=== PATIENT | male | born 1965 | race Caucasian/White ===

== ENCOUNTER → 2018-04-23 | Outpatient (CLI) | payer OTHER ==
--- NOTE | 2018-04-23 10:24 | XR ---
EXAMINATION TYPE: XR chest 2V DATE OF EXAM: 04/23/2018 COMPARISON: NONE HISTORY: Chest pain for 2 years. TECHNIQUE: Frontal and lateral views of the chest are obtained. FINDINGS: There is no focal air space opacity, pleural effusion, or pneumothorax seen. The cardiac silhouette size is within normal limits. The osseous structures are intact. IMPRESSION: No acute process.
== END | disposition home or self-care (01) ==
LOC: RADXRMAIN 10:04
PROVIDERS: ATTEND Internal Medicine Cardiovascular Disease
DX: R07.9 Chest pain, unspecified (principal); F17.200 Nicotine dependence, unspecified, uncomplicated
CPT/HCPCS: 71046

== ENCOUNTER 2022-10-23 06:12 | Observation (INO) | payer OTHER ==
--- NOTE | 2022-10-23 06:19 | ED ---
General Adult HPI - General Stated complaint: Chest Pain, Shortness of breath, Pain in neck Time Seen by Provider: 10/23/22 06:17 Source: RN notes reviewed - History of Present Illness Initial comments: 57-year-old male with past medical history significant for COPD presents to the emergency department the chief complaint of sided chest pain as sharp. He started approximately 7 PM. It is worse with movement. It does not radiate. He has experienced pneumonia at rest it will be intermittent and very between a sharp pain in a dull ache. Reports he takes a daily aspirin daily. Denies dizziness, lightheadedness, nausea, vomiting. Patient reports that he does smoke daily. - Related Data Home Medications Medication Instructions Recorded Confirmed Albuterol Sulfate [Ventolin HFA] 2 puff INHALATION RT-QID PRN 10/23/22 10/23/22 Aspirin EC [Ecotrin Low Dose] 81 mg PO DAILY 10/23/22 10/23/22 Budesonide/Formoterol Fumarate 1 puff INHALATION RT-BID 10/23/22 10/23/22 [Symbicort 160-4.5 Mcg Inhaler] Ergocalciferol [Vitamin D2 (1250 1,250 mcg PO SA 10/23/22 10/23/22 Mcg = [id number] Iu)] Allergies Allergy/AdvReac Type Severity Reaction Status Date / Time No Known Allergies Allergy Verified 10/23/22 13:10 Review of Systems ROS Statement: Those systems with pertinent positive or pertinent negative responses have been documented in the HPI. ROS Other: All systems not noted in ROS Statement are negative. General Exam - General Exam Comments Initial Comments: General: Alert, in no acute distress Head: atraumatic normocephalic. Eyes PERRL, EOMI intact, mucous membranes moist Respiratory: Lungs clear to auscultation bilaterally Cardiovascular: Bradycardiac Abdominal: Soft without guarding or rebound Extremities: Normal inspection with full range of motion and normal capillary refill Neuroogic: alert and oriented 3, CN II-XII intact, able to ambulate with steady gait Skin: warm dry and intact with normal color General appearance: alert, in no apparent distress Head exam: Present: atraumatic, normocephalic, normal inspection Eye exam: Present: normal appearance, PERRL, EOMI. Absent: scleral icterus, conjunctival injection, periorbital swelling ENT exam: Present: normal exam, mucous membranes moist Neck exam: Present: normal inspection. Absent: tenderness, meningismus, lymphadenopathy Respiratory exam: Present: normal lung sounds bilaterally. Absent: respiratory distress, wheezes, rales, rhonchi, stridor Cardiovascular Exam: Present: regular rate, normal rhythm, normal heart sounds. Absent: systolic murmur, diastolic murmur, rubs, gallop, clicks GI/Abdominal exam: Present: soft, normal bowel sounds. Absent: distended, tenderness, guarding, rebound, rigid Extremities exam: Present: normal inspection, full ROM, normal capillary refill. Absent: tenderness, pedal edema, joint swelling, calf tenderness Back exam: Present: normal inspection Neurological exam: Present: alert, oriented X3, CN II-XII intact Psychiatric exam: Present: normal affect, normal mood Skin exam: Present: warm, dry, intact, normal color. Absent: rash Course Vital Signs 10/23/22 06:14 Temperature 98.6 F Pulse Rate 58 L Respiratory 18 Rate Blood Pressure 164/91 O2 Sat by Pulse 98 Oximetry - Reevaluation(s) Reevaluation #1: 10/23/22 10:56 reevaluated. Patient describes this chest pain as a dull ache. It is agreeable with the plan for admission. Case discussed with Dr. Dao who agrees and accepts the patient for admission for continued observation and consult cardiology. EKG Findings - EKG Comments: EKG Findings:: I interpreted the following: EKG performed at 06:26 rate 55 and sinus bradycardia. IA interval 131, QRS duration 88, QT/QTc 387/375 Medical Decision Making - Medical Decision Making Was pt. sent in by a medical professional or institution (, PA, DESILVERIZER, urgent care, hospital, or snf...) When possible be specific @ -[No] Did you speak to anyone other than the patient for history (EMS, parent, family, police, friend...)? What history was obtained from this source @ - Did you review nursing and triage notes (agree or disagree)? Why? @ -[I reviewed and agree with nursing and triage notes] Were old charts reviewed (outside hosp., previous admission, EMS record, old EKG, old radiological studies, urgent care reports/EKG's, snf records)? Report findings @ -[No old charts were reviewed] Differential Diagnosis (chest pain, altered mental status, abdominal pain women, abdominal pain men, vaginal bleeding, weakness, fever, dyspnea, syncope, headache, dizziness, GI bleed, back pain, seizure, CVA, palpatations, mental health, musculoskeletal)? @ -[not applicable] EKG interpreted by me (3pts min.). @ -[As above] X-rays interpreted by me (1pt min.). @ -X-ray does not reveal any intrapleural process or evidence of consolidation or cardiomegaly CT interpreted by me (1pt min.). @ -[None done] U/S interpreted by me (1pt. min.). @ -[None done] What testing was considered but not performed or refused? (CT, X-rays, U/S, labs)? Why? @ -[None] What meds were considered but not given or refused? Why? @ -[None] Did you discuss the management of the patient with other professionals (professionals i.e. , PA, DESILVERIZER, lab, RT, psych nurse, psychotherapist social worker, front desk worker, teacher, unclaimed property officer, nurse outreach case manager)? Give summary @ -[No] Was smoking cessation discussed for >3mins.? @ -Yes Was critical care preformed (if so, how long)? @ -[No] Were there social determinants of health that impacted care today? How? (Homelessness, low income, unemployed, alcoholism, drug addiction, transportation, low edu. Level, literacy, decrease access to med. care, senior living, rehab)? @ -[No] Was there de-escalation of care discussed even if they declined (Discuss DNR or withdrawal of care, Hospice)? DNR status @ -[No] What co-morbidities impacted this encounter? (DM, HTN, Smoking, COPD, CAD, Cancer, CVA, ARF, Chemo, Hep., AIDS, mental health diagnosis, sleep apnea, morbid obesity)? @ -[None] Was patient admitted / discharged? Hospital course, mention meds given and route, prescriptions, significant lab abnormalities, going to OR and other pertinent info. @ Admission. This is a pleasant 57-year-old male with a past medical history significant for COPD who presents the emergency department with chest pain. Patient reports a history and physical performed while in the ED. Patient remains to be sinus bradycardia. Lungs clear to auscultation bilaterally abdomen soft and nontender. Patient had lab work and imaging studies performed which revealed WBC 5.1, hemoglobin 16.0 sodium 138, potassium 4.8 BUN 16, creatinine 1.34, initial troponin negative EKG shows nonspecific ST changes. Case discussed with Dr. Sylwia thomson who agrees and accepts the patient for further observation with recommend consult to cardiology. Patient was offered aspirin and nitroglycerin for his symptoms however he declined. Case discussed with AMPARO Talamantes who agrees with plan of care Undiagnosed new problem with uncertain prognosis? @ -[No] Drug Therapy requiring intensive monitoring for toxicity (Heparin, Nitro, Insulin, Cardizem)? @ -[No] Were any procedures done? @ -[No] Diagnosis/symptom? @ -Chest Pain - Unstable Angina Acute, or Chronic, or Acute on Chronic? @ -Acute Uncomplicated (without systemic symptoms) or Complicated (systemic symptoms)? @ -Uncomplicated Side effects of treatment? @ -[No] Exacerbation, Progression, or Severe Exacerbation? @ -[No] Poses a threat to life or bodily function? How? (Chest pain, [place], OR, pneumonia, PE, COPD, DKA, ARF, appy, cholecystitis, CVA, Diverticulitis, Homicidal, Suicidal, threat to staff... and all critical care pts) @ -Low likelihood - Lab Data Result diagrams: 10/23/22 06:40 10/23/22 06:40 Lab Results 10/23/22 10/23/22 10/23/22 Range/Units 06:40 06:40 06:40 WBC 5.1 (3.8-10.6) k/uL RBC 5.05 (4.30-5.90) m/uL Hgb 16.0 (13.0-17.5) gm/dL Hct 48.2 (39.0-53.0) % MCV 95.3 (80.0-100.0) fL MCH 31.7 (25.0-35.0) pg MCHC 33.3 (31.0-37.0) g/dL RDW 13.0 (11.5-15.5) % Plt Count 220 (150-450) k/uL MPV 7.2 Neutrophils % (Manual) 50 % Band Neuts % (Manual) 1 % Lymphocytes % (Manual) 30 % Monocytes % (Manual) 16 % Eosinophils % (Manual) 3 % Neutrophils # (Manual) 2.60 (1.3-7.7) k/uL Lymphocytes # (Manual) 1.53 (1.0-4.8) k/uL Monocytes # (Manual) 0.82 (0-1.0) k/uL Eosinophils # (Manual) 0.15 (0-0.7) k/uL Nucleated RBCs 0 (0-0) /100 WBC Manual Slide Review Performed RBC Morphology Normal Sodium 138 (137-145) mmol/L Potassium 4.8 (3.5-5.1) mmol/L Chloride 105 (98-107) mmol/L Carbon Dioxide 23 (22-30) mmol/L Anion Gap 10 mmol/L BUN 16 (9-20) mg/dL Creatinine 1.34 H (0.66-1.25) mg/dL Est GFR (CKD-EPI)AfAm 68 (>60 ml/min/1.73 sqM) Est GFR (CKD-EPI)NonAf 58 (>60 ml/min/1.73 sqM) Glucose 96 (74-99) mg/dL Calcium 9.3 (8.4-10.2) mg/dL Magnesium 2.0 (1.6-2.3) mg/dL Total Bilirubin 1.1 (0.2-1.3) mg/dL AST 38 (17-59) U/L ALT 22 (4-49) U/L Alkaline Phosphatase 98 (38-126) U/L Troponin I <0.012 (0.000-0.034) ng/mL Total Protein 7.7 (6.3-8.2) g/dL Albumin 4.4 (3.5-5.0) g/dL 10/23/22 Range/Units 09:24 WBC (3.8-10.6) k/uL RBC (4.30-5.90) m/uL Hgb (13.0-17.5) gm/dL Hct (39.0-53.0) % MCV (80.0-100.0) fL MCH (25.0-35.0) pg MCHC (31.0-37.0) g/dL RDW (11.5-15.5) % Plt Count (150-450) k/uL MPV Neutrophils % (Manual) % Band Neuts % (Manual) % Lymphocytes % (Manual) % Monocytes % (Manual) % Eosinophils % (Manual) % Neutrophils # (Manual) (1.3-7.7) k/uL Lymphocytes # (Manual) (1.0-4.8) k/uL Monocytes # (Manual) (0-1.0) k/uL Eosinophils # (Manual) (0-0.7) k/uL Nucleated RBCs (0-0) /100 WBC Manual Slide Review RBC Morphology Sodium (137-145) mmol/L Potassium (3.5-5.1) mmol/L Chloride (98-107) mmol/L Carbon Dioxide (22-30) mmol/L Anion Gap mmol/L BUN (9-20) mg/dL Creatinine (0.66-1.25) mg/dL Est GFR (CKD-EPI)AfAm (>60 ml/min/1.73 sqM) Est GFR (CKD-EPI)NonAf (>60 ml/min/1.73 sqM) Glucose (74-99) mg/dL Calcium (8.4-10.2) mg/dL Magnesium (1.6-2.3) mg/dL Total Bilirubin (0.2-1.3) mg/dL AST (17-59) U/L ALT (4-49) U/L Alkaline Phosphatase (38-126) U/L Troponin I <0.012 (0.000-0.034) ng/mL Total Protein (6.3-8.2) g/dL Albumin (3.5-5.0) g/dL Disposition Clinical Impression: Chest pain, Unstable angina Disposition: ADMITTED IP TO THIS [facility] Condition: Stable Is patient prescribed a controlled substance at d/c from ED?: No Time of Disposition: 10:28
--- NOTE | 2022-10-23 07:34 | XR ---
EXAMINATION TYPE: XR chest 2V DATE OF EXAM: 10/23/2022 COMPARISON: 04/23/2018 INDICATION: Chest pain TECHNIQUE: Frontal and lateral views of the chest are obtained. FINDINGS: The heart size is normal. The pulmonary vasculature is normal. The lungs are clear. IMPRESSION: 1. No acute pulmonary process.
[2022-10-23 07:58] LABS: ALT 22 U/L (4-49); AST 38 U/L (17-59); African American GFR (CKD) 68 (>60 ml/min/1.73 sqM); Albumin 4.4 g/dL (3.5-5.0); Alkaline Phosphatase 98 U/L (38-126); Anion Gap 10 mmol/L; Blood Urea Nitrogen 16 mg/dL (9-20); Calcium 9.3 mg/dL (8.4-10.2); Carbon Dioxide 23 mmol/L (22-30); Chloride 105 mmol/L (98-107); Glucose 96 mg/dL (74-99); Non-African American GFR(CKD) 58 (>60 ml/min/1.73 sqM); Potassium 4.8 mmol/L (3.5-5.1); Sodium 138 mmol/L (137-145); Total Bilirubin 1.1 mg/dL (0.2-1.3); Total Protein 7.7 g/dL (6.3-8.2)
[2022-10-23 08:14] LABS: HCT 48.2 % (39.0-53.0); MCH 31.7 pg (25.0-35.0); MCHC 33.3 g/dL (31.0-37.0); MCV 95.3 fL (80.0-100.0); Mean Platelet Volume 7.2; Platelet Count 220 k/uL (150-450); RBC 5.05 m/uL (4.30-5.90); WBC 5.1 k/uL (3.8-10.6)
[2022-10-23] MEDS ORDERED: NITROGLYCERIN SL TABS 0.4 MG TAB SUBLINGUAL PRN (09:23)
[2022-10-23] MEDS ORDERED: SODIUM CHLORIDE 0.9% 1,000 ML IV ONE (09:23)
[2022-10-23] MEDS ORDERED: ASPIRIN 325 MG TAB PO STA (09:23)
[2022-10-23 09:31] LABS: Band Neutrophils % 1 %; Eosinophils # (M) 0.15 k/uL (0-0.7); Lymphocytes # (M) 1.53 k/uL (1.0-4.8); Monocytes # (M) 0.82 k/uL (0-1.0); Neutrophils % (M) 50 %; Nucleated Red Blood Cells 0 /100 WBC (0-0); Total Cells Counted 100
[2022-10-23 09:33] LABS: RBC Morphology Normal
[2022-10-23] MEDS ORDERED: NALOXONE 0.4 MG/ML 1 ML VIAL IV PRN (10:54)
[2022-10-23] MEDS ORDERED: SODIUM CHLORIDE 0.9% 1,000 ML IV SCH (11:00)
--- NOTE | 2022-10-23 12:43 | P.HPIM ---
History of Present Illness H&P Date: 10/23/22 History of Presenting Illness: Patient is a very pleasant 57-year-old male with a past medical history of COPD and nicotine dependence. Patient reports he recently quit smoking a few days ago. He presented to the emergency department today secondary to complaints of chest pain. Patient reports he's had intermittent chest pain on and off for months and that intermittently comes and goes with no rhyme or reason. Patient states it can come on at rest or with activity, but states this time it was different. Patient reports around 7 PM last night feeling a sharp pain to left anterior chest accompanied by shortness of breath and pain in the back of his neck. He describes this pain as a sharp feeling and again states it waxes and wanes, he reports this time pain was different because again it was accompanied by shortness of breath and pain in the back of his neck but also after starting at 7 PM he went to bed and upon awakening this morning the pain was still there which never happens so he figured he better get it checked out. He denies having any dizziness, lightheadedness, headache, diaphoresis, chills, fevers, palpitations, postnasal drainage/cough/congestion, nausea/vomiting, or experiencing any numbness/tingling/weakness/swelling in his extremities. He underwent full evaluation in the emergency department. Vital signs completed with blood pressure 164/91, heart rate 58, respiratory rate 18, temp 98.6F, SpO2 of 98% on room air. EKG showing sinus bradycardia at 55 bpm with no significant T-wave or ST abnormalities upon personal review and interpretation. X-ray completed negative for acute cardiopulmonary process. Labs completed and reviewed. CBC unremarkable. BMP revealing mild elevation of creatinine at 1.34, unknown baseline as no previous labs available for comparison. Troponins negative at less than 0.012 with repeat troponin of less than 0.012. Discussed patient history, current complaints, laboratory analysis and imaging results with ED provider. Patient to be admitted under our services to cardiac observation unit with telemetry. Consult placed to cardiology. Review of systems: Pertinent positives and negatives as discussed in HPI, a complete review of systems was performed and all other systems are negative. Physical exam: Vital signs reviewed and stable. General: Nontoxic, no distress and appears stated age. Derm: Skin warm and dry, normal coloration for ethnicity. Head: Atraumatic, normocephalic and symmetric. Eyes: EOMs intact, no lid lag, and anicteric sclera Mouth: no lip lesions, mucus membranes moist Cardiovascular: regular rate and rhythm with normal S1S2, no murmur, positive posterior tibial pulses bilaterally, and cap refill < 2 seconds. Lungs: Respirations even, regular, and unlabored on room air. Lungs CTA bilaterally, no rhonchi, no rales, no wheezing, and no accessory muscle usage. Abdominal: soft, nontender to palpation, no guarding, no appreciable organomegaly Ext: ROM intact. No gross muscle atrophy, no edema, no contractures Neuro: Speech clear, face symmetrical and CN II-XII grossly intact with no noted focal neuro deficits Psych: Alert and oriented to person, place, time, and situation. Appropriate and pleasant affect. Assessment and Plan of Care: Patient is a very pleasant 57-year-old male with a past medical history of COPD and long-standing history of nicotine dependence reports recently quit smoking 3 days ago. He presented to the emergency department with a chief complaint of chest pain accompanied by shortness of breath and pain to the back of his neck. Imaging reviewed: -EKG showing sinus bradycardia at 55 bpm with no significant T-wave or ST abn ormalities upon personal review and interpretation. -X-ray completed negative for acute cardiopulmonary process. Data reviewed: -Vital signs completed with blood pressure 164/91, heart rate 58, respiratory rate 18, temp 98.6F, SpO2 of 98% on room air. -Labs completed and reviewed. CBC unremarkable. BMP revealing mild elevation of creatinine at 1.34, unknown baseline as no previous labs available for comparison. Troponins negative at less than 0.012 with repeat troponin of less than 0.012. Chest pain, rule out acute coronary event COPD Nicotine dependence, recommend continued cessation -Cardiology consult, appreciate further recommendations -Telemetry monitoring -Trend troponins -Cardiac diet, NPO at midnight -Aspirin, atorvastatin, and metoprolol -Lipid profile with a.m. labs. -Echocardiogram Discussed patient history, current complaints, laboratory analysis and imaging results with ED provider. Patient to be admitted under our services to cardiac observation unit with telemetry for an anticipated less than 2 midnight stay for evaluation of chest pain. CODE STATUS: Full code DVT prophylaxis: Lovenox Discussed with: Patient, patient's , RN and ED physician. Anticipated discharge date: 24-[address]: Home Patient was seen independently by Nurse Practitioner. This document was prepared using [employer] dictation software. Please allow for errors in gas meter repairer while rare they do occur. Tim Royal NP rendered care for this patient independently, reviewed the findings and plan as documented in the note above. I did not physically speak with or examine the patient on this date. Past Medical History Past Medical History: COPD History of Any Multi-Drug Resistant Organisms: None Reported Past Surgical History: No Surgical Hx Reported Past Psychological History: No Psychological Hx Reported Smoking Status: Current every day smoker Past Alcohol Use History: Occasional Past Drug Use History: None Reported Medications and Allergies Home Medications Medication Instructions Recorded Confirmed Type Albuterol Sulfate [Ventolin HFA] 2 puff INHALATION RT-QID PRN 10/23/22 10/23/22 History Aspirin EC [Ecotrin Low Dose] 81 mg PO DAILY 10/23/22 10/23/22 History Budesonide/Formoterol Fumarate 1 puff INHALATION RT-BID 10/23/22 10/23/22 History [Symbicort 160-4.5 Mcg Inhaler] Ergocalciferol [Vitamin D2 (1250 1,250 mcg PO SA 10/23/22 10/23/22 History Mcg = [id number] Iu)] Allergies Allergy/AdvReac Type Severity Reaction Status Date / Time No Known Allergies Allergy Verified 10/23/22 13:10 Physical Exam Vitals: Vital Signs Temp Pulse Resp BP Pulse Ox 10/23/22 06:14 98.6 F 58 L 18 164/91 98 Intake and Output 10/22/22 10/23/22 10/23/22 22:59 06:59 14:59 Other: Weight 85.729 kg Results CBC & Chem 7: 10/24/22 05:51 10/24/22 05:51 Labs: Abnormal Lab Results - Last 24 Hours (Table) 10/23/22 Range/Units 06:40 Creatinine 1.34 H (0.66-1.25) mg/dL
[2022-10-23 16:12] LABS: Partial Thromboplastin Time 26.2 sec (22.0-30.0); Prothrombin Time 10.3 sec (9.0-12.0)
[2022-10-23] MEDS ORDERED: ALBUTEROL NEBULIZED 2.5 MG/3 ML INHALATION PRN (16:29)
[2022-10-23] MEDS ORDERED: HYDROcodone/APAP 5-325MG 1 EACH TAB PO PRN (16:30)
[2022-10-23] MEDS: SYMBICORT 160-4.5 MCG INHALER INHALATION SCH (20:46)
[2022-10-23] MEDS ORDERED: METOPROLOL TARTRATE 25 MG TAB PO SCH (21:00)
[2022-10-23] MEDS ORDERED: ATORVASTATIN 40 MG TAB PO SCH (21:00)
[2022-10-23 22:45] VITALS: RESP 16
[2022-10-24] MEDS: SYMBICORT 160-4.5 MCG INHALER INHALATION SCH (08:36)
[2022-10-24 08:41] LABS: Basophils # (A) 0.06 X 10*3/uL (0.00-0.10); Basophils % (A) 1.3 %; Eosinophils # (A) 0.07 X 10*3/uL (0.04-0.35); Eosinophils % (A) 1.6 %; HCT 45.1 % (39.6-50.0); HGB 15.7 d/dL (13.0-17.0); Lymphocytes # (A) 1.38 X 10*3/uL (0.90-5.00); Lymphocytes % (A) 30.6 %; MCH 32.2 pg (27.0-32.0); MCHC 34.8 d/dL (32.0-37.0); MCV 92.4 FL (80.0-97.0); Mean Platelet Volume 9.2 FL (9.5-12.2); Monocytes # (A) 0.86 X 10*3/uL (0.20-1.00); Monocytes % (A) 19.1 %; NRBC Per 100 WBC 0 X 10*3/uL (0.00-0.01); Neutrophils # (A) 2.12 X 10*3/uL (1.80-7.70); Platelet Count 209 X 10*3/uL (140-440); RBC 4.88 X 10*6/uL (4.40-5.60); RDW 12.9 % (11.5-14.5); WBC 4.51 X 10*3/uL (4.50-10.00)
[2022-10-24 08:55] LABS: BUN/Creat Ratio 9.33 Ratio (12.00-20.00); Blood Urea Nitrogen 11.2 mg/dL (9.0-27.0); Calcium 8.8 mg/dL (8.7-10.3); Carbon Dioxide 24.5 mmol/L (21.6-31.8); Chloride 104 mmol/L (96-109); Chol/HDL Ratio 3.58 Ratio; Glucose 101 mg/dL (70-110); LDL Cholesterol,Calculated 79.6 mg/dL (0.0-131.0); Potassium 4.4 mmol/L (3.5-5.5); Sodium 138 mmol/L (135-145)
[2022-10-24] MEDS ORDERED: ASPIRIN 81 MG PO SCH (09:00)
[2022-10-24] MEDS ORDERED: ENOXAPARIN 40 MG/0.4 ML SYRINGE SQ SCH (09:00)
[2022-10-24 09:10] VITALS: BP 131/77; PULSE 67; TEMP 98.4
--- NOTE | 2022-10-24 10:14 | P.CRDCN ---
History of Present Illness History of present illness: HISTORY OF PRESENT ILLNESS: This is a 57-year-old male with a past medical history significant for nicotine dependence. Patient does not follow with a business systems developer. We have been asked to see the patient in consultation for chest pain. Patient examined at the bedside. Patient states he has been having chest pain on and off for multiple years. He states on Monday night going into Monday the pain was worse than it has been in a long time. He states that there is nothing specific that brought the pain on. He states the pain is not worse with exertion. He states the pain does not last very long when it happens but then it will come back. He reports shortness of breath which is chronic and at his baseline secondary to smoking. He denies a history of hypertension, hyperlipidemia, or diabetes. He denies a history of coronary artery disease. He is a current cigarette smoker and smokes 1 pack per day. However, he states that he quit smoking on Monday. At the time of examination he denies chest pain or pressure. * EKG reveals sinus mechanism with no signs of acute ischemia * Chest xray negative for acute process * Laboratory data: WBC 4.51. Hemoglobin 15.7. Platelet count 209. D-dimer 0.49. Sodium 138. Potassium 4.8. BUN 16. Creatinine 1.34. Troponin negative 4. * Current home cardiac medications include aspirin 81 mg daily REVIEW OF SYSTEMS: At the time of my exam: CONSTITUTIONAL: Denies fever or chills. HEENT: Denies blurred vision, vision changes, or eye pain. Denies hemoptysis CARDIOVASCULAR: Denies chest pain. Denies orthopnea. Denies PND. Denies palpitations RESPIRATORY: Denies shortness of breath. GASTROINTESTINAL: Denies abdominal pain. Denies nausea or vomiting. HEMATOLOGIC: Denies bleeding disorders. GENITOURINARY: Denies any blood in urine. SKIN: Denies pruitis. Denies rash. PHYSICAL EXAM: VITAL SIGNS: Reviewed. GENERAL: Well-developed in no acute distress. HEENT: Head is normocephalic. Pupils are equal, round. Sclerae anicteric. Mucous membranes of the mouth are moist. Neck supple. No JVD or thyromegaly LUNGS: Respirations even and unlabored. Lungs essentially clear to auscultation bilaterally. HEART: Regular rate and rhythm. S1 and S2 heard. Soft systolic murmur. ABDOMEN: Soft. Nondistended. Nontender. EXTREMITIES: Normal range of motion. No clubbing or cyanosis. Peripheral pulses intact. No lower extremity edema NEUROLOGIC: Awake and alert. Oriented x 3. ASSESSMENT: Chest pain, troponins negative 4 Nicotine dependence PLAN: An acute coronary event has been ruled out Obtain 2-D echo to assess cardiac structure and function Patient to undergo stress echocardiogram today to assess for ischemia Smoking cessation recommended If stress echo is negative, patient may be discharged home today from a cardiac standpoint Nurse practitioner note has been reviewed by physician. Signing provider agrees with the documented findings, assessment, and plan of care. Past Medical History Past Medical History: COPD History of Any Multi-Drug Resistant Organisms: None Reported Past Surgical History: No Surgical Hx Reported Past Psychological History: No Psychological Hx Reported Smoking Status: Current every day smoker Past Alcohol Use History: Occasional Past Drug Use History: None Reported Medications and Allergies Home Medications Medication Instructions Recorded Confirmed Type Albuterol Sulfate [Ventolin HFA] 2 puff INHALATION RT-QID PRN 10/23/22 10/23/22 History Aspirin EC [Ecotrin Low Dose] 81 mg PO DAILY 10/23/22 10/23/22 History Budesonide/Formoterol Fumarate 1 puff INHALATION RT-BID 10/23/22 10/23/22 Hist ory [Symbicort 160-4.5 Mcg Inhaler] Ergocalciferol [Vitamin D2 (1250 1,250 mcg PO SA 10/23/22 10/23/22 History Mcg = 00704 Iu)] Allergies Allergy/AdvReac Type Severity Reaction Status Date / Time No Known Allergies Allergy Verified 10/23/22 13:10 Physical Exam Vitals: Vital Signs Temp Pulse Pulse Resp BP BP Pulse Ox 10/24/22 03:43 98.3 F 60 16 154/78 95 10/23/22 20:05 98.7 F 59 L 16 171/85 97 10/23/22 16:51 64 18 98 10/23/22 15:00 54 L 16 173/87 95 10/23/22 14:18 56 L 18 143/78 95 Intake and Output 10/23/22 10/24/22 10/24/22 22:59 06:59 14:59 Other: # Voids 1 1 Results 10/24/22 05:51 10/24/22 05:51 Cardiac Enzymes 10/23/22 10/23/22 10/23/22 Range/Units 09:24 11:14 15:34 Troponin I <0.012 <0.012 <0.012 (0.000-0.034) ng/mL Coagulation 10/23/22 Range/Units 15:40 PT 10.3 (9.0-12.0) sec APTT 26.2 (22.0-30.0) sec CBC 10/23/22 Range/Units 06:40 WBC 5.1 (3.8-10.6) k/uL RBC 5.05 (4.30-5.90) m/uL Hgb 16.0 (13.0-17.5) gm/dL Hct 48.2 (39.0-53.0) % Plt Count 220 (150-450) k/uL Current Medications Generic Name Dose Route Start Last Admin Trade Name Freq PRN Reason Stop Dose Admin Hydrocodone Bitart/Acetaminophen 1 each 10/23/22 16:30 Hydrocodone/Apap 5-325mg 1 Each Tab PO Q4HR PRN Moderate Pain (Scale 4 to 6) Albuterol Sulfate 2.5 mg 10/23/22 16:29 Albuterol Nebulized 2.5 Mg/3 Ml INHALATION RT-QID PRN Shortness Of Breath Aspirin 81 mg 10/24/22 09:00 Aspirin 81 Mg PO DAILY [place] Atorvastatin Calcium 40 mg 10/23/22 21:00 10/23/22 19:45 Atorvastatin 40 Mg Tab PO 40 mg HS [place] Administration Budesonide/Formoterol Fumarate 1 puff 10/23/22 20:00 10/23/22 20:46 Symbicort 160-4.5 Mcg Inhaler INHALATION Not Given RT-BID [place] Enoxaparin Sodium 40 mg 10/24/22 09:00 Enoxaparin 40 Mg/0.4 Ml Syringe SQ DAILY [place] Ergocalciferol 1,250 mcg 10/29/22 09:00 Ergocalciferol 1,250 Mcg (50,000 Iu) Capsule PO SA [facility] Sodium Chloride 1,000 mls @ 20 mls/hr 10/23/22 11:00 10/23/22 14:34 Saline 0.9% IV Not Given .Q24H [facility] Metoprolol Tartrate 25 mg 10/23/22 21:00 10/23/22 19:44 Metoprolol Tartrate 25 Mg Tab PO Not Given BID [place] Naloxone HCl 0.2 mg 10/23/22 10:54 Naloxone 0.4 Mg/Ml 1 Ml Vial IV Q2M PRN Opioid Reversal Nitroglycerin 0.4 mg 10/23/22 09: Nitroglycerin Sl Tabs 0.4 Mg Tab SUBLINGUAL Q5M PRN Chest Pain Intake and Output 10/23/22 10/24/22 10/24/22 22:59 06:59 14:59 Other: # Voids 1 1 10/23/22 06:40 10/23/22 06:40
--- NOTE | 2022-10-24 10:35 | CA ---
Transthoracic Echo Report Name: Villa Jiang Age: 57 Gender: M : 1965 Exam Date: 10/24/2022 08:10 Exam Location: [place] [facility] Ht (in): 68 Wt (lb): 189 Ordering Physician: Tim Royal Attending/Referring Phys: Lending Manager Denise Rico RDCS Procedure CPT: Indications: Evaluate structure and function of heart Cardiac Hx: Technical Quality: Good Contrast 1: Total Dose (mL): Contrast 2: Total Dose (mL): MEASUREMENTS (Male / Female) Normal Values 2D ECHO LV Diastolic Diameter PLAX 3.9 cm 4.2 - 5.9 / 3.9 - 5.3 cm LV Systolic Diameter PLAX 2.9 cm IVS Diastolic Thickness 1.3 cm 0.6 - 1.0 / 0.6 - 0.9 cm LVPW Diastolic Thickness 1.3 cm 0.6 - 1.0 / 0.6 - 0.9 cm LV Relative Wall Thickness 0.6 RV Internal Dim ED PLAX 3.3 cm LA Systolic Diameter LX 3.5 cm 3.0 - 4.0 / 2.7 - 3.8 cm LV Diastolic Volume MOD 4C 103.4 cm??? LV Systolic Volume MOD 4C 42.8 cm??? LV Ejection Fraction MOD 4C 58.6 % LV Cardiac Index MOD 4C 1597.4 cm???/min???m??? LV Diastolic Length 4C 8.0 cm LV Systolic Length 4C 6.4 cm LV Diastolic Volume MOD 2C 91.0 cm??? LV Systolic Volume MOD 2C 37.6 cm??? LV Ejection Fraction MOD 2C 58.7 % LV Cardiac Index MOD 2C 1407.7 cm???/min???m??? LV Diastolic Length 2C 8.4 cm LV Systolic Length 2C 6.8 cm LA Volume 58.4 cm??? 18 - 58 / 22 - 52 cm??? M-MODE Aortic Root Diameter MM 3.1 cm MV E Point Septal Separation 0.4 cm AV Cusp Separation MM 2.2 cm DOPPLER AV Peak Velocity 179.5 cm/s AV Peak Gradient 12.9 mmHg AV Mean Velocity 113.8 cm/s AV Mean Gradient 5.9 mmHg AV Velocity Time Integral 37.8 cm AI Peak Velocity 262.4 cm/s AI Peak Gradient 27.5 mmHg AI Pressure Half Time 1138.2 ms MV Area PHT 3.5 cm??? Mitral E Point Velocity 61.5 cm/s Mitral A Point Velocity 72.3 cm/s Mitral E to A Ratio 0.9 MV Deceleration Time 216.1 ms MV E' Velocity 5.3 cm/s Mitral E to MV E' Ratio 11.6 TR Peak Velocity 216.2 cm/s TR Peak Gradient 18.7 mmHg Right Ventricular Systolic Press 22.1 mmHg FINDINGS Left Ventricle Left ventricular ejection fraction is estimated at 55-60 %. Left ventricular cavity size normal. Mildly increased septal wall thickness. Right Ventricle Mild right ventricular dilatation. Right ventricular systolic pressure within normal limits. Right Atrium Normal right atrial size. Left Atrium Normal left atrial size. Mitral Valve Structurally normal mitral valve. Trace to mild mitral regurgitation. Aortic Valve Bicuspid aortic valve. Trace to mild aortic regurgitation. Tricuspid Valve Structurally normal tricuspid valve. Trace to mild tricuspid regurgitation. Pulmonic Valve Structurally normal pulmonic valve. Pericardium No pericardial effusion. Aorta Normal size aortic root and proximal ascending aorta. CONCLUSIONS 1. Normal left ventricle size and systolic function 2. Bicuspid aortic valve with preserved opening and trace to mild aortic regurgitation 3. Trace to mild mitral and tricuspid regurgitation. Previewed by: Dr. Rachel Chowdary MD (Electronically Signed) Final Date: 24 October 2022 10:34
--- NOTE | 2022-10-24 13:03 | CA ---
Stress Echo Report Villa Jiang Age: 57 Gender: M : 1965 Exam Date: 10/24/2022 11:18 Exam Location: [place] [facility] Ht (in): 68 Wt (lb): 189 Ordering Physician: Kassie Og Referring Physician: [id number] Pastoral Assistant: Ewa Woodruff RDCS Technologist Procedure CPT: Indication: CP ICD-9 Codes: Rhythm: Patient History: CHEST PAIN, DIFFICULTY IN BREATHING, CURRENT SMOKER, COPD Cardiac Medications: Medications in past 24 hours: Contrast: Stress Results Protocol: Vitaliy Total dose(mL): Exercise Duration (min:sec): 5:[address] Depression (mm): Angina Score: Larsen Score: METS: 6.6 Resting HR: 74 Resting BP: 143 / 76 Peak HR: 146 Peak BP: 206 / 56 Max Predicted HR: 162 90 % Max Predicted HR Target HR: 138 Double Product: [id number] Stress Summary: The patient's target heart rate was achieved BP Response: Normal Reason for Termination: TARGET HR/MAX EXERTION Cardiac Symptoms: ECG Analysis Resting ECG: Normal sinus rhythm, normal ECG Stress ECG: No abnormal ST/T wave changes with exercise Arrhythmia: Occasional APCs Echo Analysis Resting Echo: Normal resting echocardiogram. Peak Echo Analysis: Normal wall thickening and motion with no segmental wall motion amounting MEASUREMENTS (Male/Female) Normal Values CONCLUSIONS 1. Decreased exercise tolerance 2. Normal echocardiographic response to exercise 3. Normal stress echocardiogram with no evidence of stress- induced ischemia. Dr. Rachel Chowdary MD (Electronically Signed) Final Date: 24 October 2022 13:02
--- NOTE | 2022-10-24 14:27 | P.DS ---
Providers Date of admission: 10/23/22 10:13 Expected date of discharge: 10/24/22 Attending physician: Duy Dao MD Consults: 10/23/22 10:54 Consult Physician Routine Consulting Provider: Bridger Waters Consult Reason/Comments: Chest pain Do you want consulting provider notified?: Yes Primary care physician: Physician Nonstaff Hospital Course: Discharge Diagnosis: Chest pain, acute coronary event ruled out. COPD Nicotine dependence, recommend continued cessation Hospital Course: Patient is a very pleasant 57-year-old male with a past medical history of COPD and nicotine dependence. Patient reports he recently quit smoking a few days ago. He presented to the emergency department today secondary to complaints of chest pain. Patient reports he's had intermittent chest pain on and off for months and that intermittently comes and goes with no rhyme or reason. Patient states it can come on at rest or with activity, but states this time it was different. Patient reports around 7 PM last night feeling a sharp pain to left anterior chest accompanied by shortness of breath and pain in the back of his neck. He describes this pain as a sharp feeling and again states it waxes and wanes, he reports this time pain was different because again it was accompanied by shortness of breath and pain in the back of his neck but also after starting at 7 PM he went to bed and upon awakening this morning the pain was still there which never happens so he figured he better get it checked out. He denies having any dizziness, lightheadedness, headache, diaphoresis, chills, fevers, palpitations, postnasal drainage/cough/congestion, nausea/vomiting, or experiencing any numbness/tingling/weakness/swelling in his extremities. He underwent full evaluation in the emergency department. Vital signs completed with blood pressure 164/91, heart rate 58, respiratory rate 18, temp 98.6F, SpO2 of 98% on room air. EKG showing sinus bradycardia at 55 bpm with no significant T-wave or ST abnormalities upon personal review and interpretation. X-ray completed negative for acute cardiopulmonary process. Labs completed and reviewed. CBC unremarkable. BMP revealing mild elevation of creatinine at 1.34, unknown baseline as no previous labs available for comparison. Troponins negative at less than 0.012 with repeat troponin of less than 0.012. Discussed patient history, current complaints, laboratory analysis and imaging results with ED provider. Patient to be admitted under our services to cardiac observation unit with telemetry. Consult placed to cardiology. Coagulation profile normal findings. D-dimer negative at 0.49. Troponins trended all negative at less than 0.0124 draws. Lipid profile unremarkable. Echocardiogram completed reporting EF of 55-60% with mildly increased septal wall thickness, bicuspid aortic valve with preserved opening and trace to mild aortic regurgitation, and mild mitral and tricuspid regurgitation. Patient was evaluated by cardiology recommending stress test. Stress echocardiogram completed showing a decreased exercise tolerance with normal echocardiographic response to exercise and normal stress echocardiogram with no evidence of stress-induced ischemia. Patient very anxious for discharge. Medically, patient is stable for discharge at this time. Patient to follow up outpatient with PCP in 1-2 days and with cardiology in 1 week. Physical exam: Vital signs reviewed and stable. General: Nontoxic, no distress and appears stated age. Derm: Skin warm and dry, normal coloration for ethnicity. Head: Atraumatic, normocephalic and symmetric. Eyes: EOMs intact, no lid lag, and anicteric sclera Mouth: no lip lesions, mucus membranes moist Cardiovascular: regular rate and rhythm with normal S1S2, no murmur, positive posterior tibial pulses bilaterally, and cap refill < 2 seconds. Lungs: Respirations even, regular, and unlabored on room air. Lungs CTA bilaterally, no rhonchi, no rales, no wheezing, and no accessory muscle usage. Abdominal: soft, nontender to palpation, no guarding, no appreciable organomegaly Ext: ROM intact. No gross muscle atrophy, no edema, no contractures Neuro: Speech clear, face symmetrical and CN II-XII grossly intact with no noted focal neuro deficits Psych: Alert and oriented to person, place, time, and situation. Appropriate and pleasant affect. A total of 31 minutes of time were spent preparing this complex discharge summary. Pt was discharged on 10/24/22 at 2:27 PM. Patient was seen independently by Nurse Practitioner. This document was prepared using [employer] dictation software. Please allow for errors in house carpenter helper while rare they do occur. Tim Royal NP rendered care for this patient independently, reviewed the findings and plan as documented in the note above. I did not physically speak with or examine the patient on this date. Patient Condition at Discharge: Stable Plan - Discharge Summary New Discharge Prescriptions: Continue Aspirin EC [Ecotrin Low Dose] 81 mg PO DAILY Ergocalciferol [Vitamin D2 (1250 Mcg = 59188 Iu)] 1,250 mcg PO SA Budesonide/Formoterol Fumarate [Symbicort 160-4.5 Mcg Inhaler] 1 puff INHALATION RT-BID Albuterol Sulfate [Ventolin HFA] 2 puff INHALATION RT-QID PRN PRN Reason: Shortness Of Breath Discharge Medication List Albuterol Sulfate [Ventolin HFA] 2 puff INHALATION RT-QID PRN 10/23/22 [History] Aspirin EC [Ecotrin Low Dose] 81 mg PO DAILY 10/23/22 [History] Budesonide/Formoterol Fumarate [Symbicort 160-4.5 Mcg Inhaler] 1 puff INHALATION RT-BID 10/23/22 [History] Ergocalciferol [Vitamin D2 (1250 Mcg = 35541 Iu)] 1,250 mcg PO SA 10/23/22 [History] Follow up Appointment(s)/Referral(s): Rachel Chowdary MD [STAFF PHYSICIAN] - 1 Week Benedict Haines MD [STAFF PHYSICIAN] - 1 Week Nonstaff,Physician [Primary Care Provider] - 1-2 days Patient Instructions/Handouts: Chest Pain (ED), How to Stop Smoking (DC) Activity/Diet/Wound Care/Special Instructions: Activity: As tolerated. Take breaks as needed. Diet: Heart healthy and carb consistent diet. Avoid salts, or foods with hidden salts such as canned or boxed foods and frozen dinners. Extra salt makes your heart work harder and traps the fluid in your body for longer. Special Instructions: Take all of your medications as directed and remember to keep all of your doctor's appointments and follow-up as needed. Thank you for allowing us to participate in your care, it was truly a pleasure having you for our patient!!! Discharge Disposition: HOME SELF-CARE
[2022-10-29] MEDS ORDERED: ERGOCALCIFEROL 1,250 MCG (50,000 IU) CAPSULE PO SCH (09:00)
== END 2022-10-24 14:56 | disposition home or self-care (01) ==
LOC: EC 06:12 → 6NMEDSUR 10:13
PROVIDERS: ADMIT Student in an Organized Health Care Education/Training Program; ATTEND Student in an Organized Health Care Education/Training Program
DX: R07.9 Chest pain, unspecified (principal); J44.9 Chronic obstructive pulmonary disease, unspecified; F17.210 Nicotine dependence, cigarettes, uncomplicated; Z79.899 Other long term (current) drug therapy; Z79.51 Long term (current) use of inhaled steroids; Z79.82 Long term (current) use of aspirin
CPT/HCPCS: 96360; 96361; 99285; 36415; 93005; 93306; 93351; 85379; 80061; 80053; 80048; 83735; 84484; 85025 ×2; 85610; 85730; 71046; G0378 ×2